=== PATIENT | female | born 1975 | race Caucasian/White ===

== ENCOUNTER 2018-07-19 01:10 | Emergency (ER) | payer BC, OTHER ==
[~2018-07-19] VITALS: Ht 167.6 cm; Wt 63.5 kg
[2018-07-19 01:14] VITALS: BP 137/95
[2018-07-19 02:00] VITALS: BP 137/95
== END 2018-07-19 02:00 | disposition home or self-care (01) ==
LOC: MED 01:10
DX: F19.239 Other psychoactive substance dependence with withdrawal, unspecified (principal); I10 Essential (primary) hypertension
CPT/HCPCS: 99283